=== PATIENT | female | born 1945 | race Caucasian/White ===

== ENCOUNTER 2020-02-23 13:35 | Outpatient (REF) | payer MEDICARE, SELFPAY | END 2020-02-23 13:36 | disposition home or self-care (01) | LOC: HO.LAB 13:35 | PROVIDERS: PCP Internal Medicine; Visit Provider Internal Medicine | DX: Z20.828 Contact with and (suspected) exposure to other viral communicable diseases (principal) | CPT/HCPCS: C9803; U0003 ==

== ENCOUNTER 2023-11-21 08:29 | Outpatient (AMB) | payer MEDICARE, SELFPAY ==
--- NOTE | 2023-11-21 08:38 | MHC.OFFWIV ---
Intake Vital Signs 11/21/23 08:41 Height 5 ft 5 in Weight 157 lb BMI 26.1 BP 122/76 Blood Pressure Location Lt brachial Position Sitting Pulse 81 Pulse Source Pulse Oximeter Temp 98.2 F Temp Source Oral Pulse Oximetry (%) 99 Oxygen Delivery Method Room Air Intake Visit Reasons: EP- cough, RT ear ache, congested Intake Note: pt c/o cough, RT ear pain, congestion. Started Friday Patient Tobacco Use Status: Former Tobacco user Allergies No Known Allergies Allergy (Verified 11/21/23 08:45) Do you need a note to return to daycare/school/sports/work: No HPI HPI Comments History of Present Illness Details Patient is a 77-year-old female complaining of 6 days of a dry cough, a sore throat, right ear pain and right sinus pain. She denies any fevers, shortness of breath or sick contacts. She states she tested at home for COVID twice 2 days ago and both times it was negative. She has been taking Tylenol, using Mucinex and she does have Flonase and an inhaler but have not used either yet [facility] Social History (System 01/29/23 @ 11:10 by Loli Garcia) Patient Tobacco Use Status: Former Tobacco user Physical Exam Vital Signs: Last Vital Signs Temp 98.2 F 11/21/23 08:41 Pulse 81 11/21/23 08:41 BP 122/76 11/21/23 08:41 Pulse Ox 99 11/21/23 08:41 Oxygen Delivery Method Room Air 11/21/23 08:41 BMI result Body Mass Index 26.1 Const General: cooperative, healthy appearing, comfortable and no acute distress Orientation/consciousness: patient oriented x3 Limitations: no limitations HEENT Head: Yes normal to inspection Ears: hearing grossly normal bilaterally, external ears normal, TM normal on the left and TM abnormal (right side) wth effusion (Right side has a slight effusion), erythematous and with loss of landmarks General nose exam: Normal external nose present, Normal nares present and No nasal discharge present Face and sinus: Yes normal facial exam and Yes sinus tenderness (Right side maxillary) Mouth: Normal oral and palatal mucosa present and moist mucous membranes Throat: Yes tonsils normal, Yes uvula midline and Yes posterior oropharynx abnormal (Erythema) Eyes General: appearance normal, both eyes and all related structures Neck Neck: Yes normal visual inspection Resp Effort & Inspection: normal respiratory effort, able to speak in complete sentences, Actively coughing, no respiratory distress, not tachypneic, no tripod positioning and no use of accessory muscles Auscultation: clear to auscultation bilaterally Cardio Rate: regular rate Rhythm: regular rhythm Heart sounds: normal S1 and S2 Skin General skin exam: no rashes or lesions noted Neuro General: patient oriented x3 Extrem General: Yes normal to inspection and Yes no clubbing, cyanosis or edema Assessment & Plan Assessment & Plan (1) Sinusitis, acute maxillary: Code(s): J01.00 - Acute maxillary sinusitis, unspecified Qualifiers: Recurrence: non-recurrent Qualified Code(s): J01.00 - Acute maxillary sinusitis, unspecified Plan: Sent Augmentin to cover both sinusitis and the ear infection as it has been 6 days and she is getting worse. Also sent COVID, flu and RSV testing. (2) Right acute otitis media: Code(s): H66.91 - Otitis media, unspecified, right ear Plan: See above Plan See above Orders: Orders SARS-CoV2/FLU/RSV Today J06.9 - Acute upper respiratory infection, unspecified Medications: New amoxicillin-pot clavulanate 875-125 mg 1 tab PO Q12H 10 tabs 0RF Coding Level of Care Code New Pt Level 3 (17431) Diagnoses Acute non-recurrent maxillary sinusitis J01.00 Recurrence: non-recurrent Right acute otitis media H66.91
[2023-11-21 08:41] VITALS: BP 122/76; PULSE 81; TEMP 36.8; O2SAT 99; BMI 26.1
== END 2023-11-21 09:03 | disposition home or self-care (01) ==
PROVIDERS: PCP Internal Medicine; Visit Provider Physician Assistant
DX: J01.00 Acute maxillary sinusitis, unspecified (principal); H66.91 Otitis media, unspecified, right ear
CPT/HCPCS: 99203

== ENCOUNTER 2023-11-21 09:01 | Outpatient (REF) | payer MEDICARE, SELFPAY ==
[2023-11-21 10:49] LABS: Influenza A PCR NEGATIVE (Negative); Influenza B PCR NEGATIVE (Negative); Resp Syncy Virus RNA Qual PCR NEGATIVE (Negative); SARS COV2 PCR INHOUSE NEGATIVE (Negative)
== END 2023-11-21 09:02 | disposition home or self-care (01) ==
LOC: HO.LAB 09:01
PROVIDERS: Visit Provider Physician Assistant
DX: J06.9 Acute upper respiratory infection, unspecified (principal)
CPT/HCPCS: 0241U

== ENCOUNTER 2023-12-18 08:01 | Outpatient (REF) | payer MEDICARE, SELFPAY ==
[2023-12-18 11:23] LABS: Influenza A PCR NEGATIVE (Negative); Influenza B PCR NEGATIVE (Negative); Resp Syncy Virus RNA Qual PCR NEGATIVE (Negative); SARS COV2 PCR INHOUSE NEGATIVE (Negative)
== END 2023-12-18 08:02 | disposition home or self-care (01) ==
LOC: HO.LAB 08:01
PROVIDERS: Registered Nurse; PCP Internal Medicine; Visit Provider Physician Assistant
DX: J06.9 Acute upper respiratory infection, unspecified (principal); J01.00 Acute maxillary sinusitis, unspecified
CPT/HCPCS: 0241U; 87880; 99202

== ENCOUNTER 2023-12-18 08:01 | Outpatient (AMB) | payer MEDICARE, SELFPAY ==
[2023-12-18 08:07] VITALS: BP 132/84; PULSE 90; TEMP 36.7; O2SAT 99; BMI 26.1
--- NOTE | 2023-12-18 08:07 | AM.OFFWIN_ITS ---
Intake Vital Signs 12/18/23 08:07 Height 5 ft 5 in Weight 157 lb BMI 26.1 BP 132/84 Blood Pressure Location Rt brachial Position Sitting Pulse 90 Pulse Source Pulse Oximeter Temp 98.0 F Temp Source Oral Pulse Oximetry (%) 99 Oxygen Delivery Method Room Air Intake Visit Reasons: EP Sore throat, cough, sinus Intake Note: pt c/o sore throat, cough, body aches, sinus congestion x 1 week Patient Tobacco Use Status: Former Tobacco user Allergies No Known Allergies Allergy (Verified 12/18/23 08:14) Do you need a note to return to daycare/school/sports/work: No HPI HPI Comments History of Present Illness Details Patient is a 78-year-old female complaining of 7 days of a sore throat, a dry cough, body aches, headaches, left ear pain and sinus congestion. She states she has been taking Flonase, Tylenol and using hot tea with lemon and honey without much relief. She denies any shortness of breath, fevers, nausea vomiting or diarrhea. She denies any sick contacts at home. [facility] Social History (System 01/29/23 @ 11:10 by Loli Garcia) Patient Tobacco Use Status: Former Tobacco user Review of Systems Const All systems reviewed & are unremarkable except as noted in HPI and below Physical Exam Vital Signs: Last Vital Signs Temp 98.0 F 12/18/23 08:07 Pulse 90 12/18/23 08:07 BP 132/84 12/18/23 08:07 Pulse Ox 99 12/18/23 08:07 Oxygen Delivery Method Room Air 12/18/23 08:07 BMI result Body Mass Index 26.1 Const General: cooperative, healthy appearing, comfortable and no acute distress Orientation/consciousness: patient oriented x3 Limitations: no limitations HEENT Head: Yes normal to inspection Ears: hearing grossly normal bilaterally, external ears normal and TM's normal bilaterally General nose exam: Normal external nose present, Normal nares present and No nasal discharge present Face and sinus: Yes normal facial exam and Yes sinuses nontender Mouth: Normal oral and palatal mucosa present and moist mucous membranes Throat: Yes tonsils normal, Yes uvula midline and Yes posterior oropharynx abnormal (Erythema) Eyes General: appearance normal, both eyes and all related structures Neck Neck: Yes normal visual inspection Resp Effort & Inspection: normal respiratory effort, able to speak in complete sentences, no respiratory distress, not tachypneic, no tripod positioning and no use of accessory muscles Skin General skin exam: no rashes or lesions noted Neuro General: patient oriented x3 Extrem General: Yes normal to inspection and Yes no clubbing, cyanosis or edema Results AMB Rapid Strep AMB Rapid Strep Negative Last Edit by Roberto Tavares CMA on 12/18/23 08:27 Results Reviewed Results Reviewed: Laboratory Last Values Strep Scn [facility] Negative 12/18/23 08:26 Assessment & Plan Assessment & Plan (1) Sinusitis, acute maxillary: Code(s): J01.00 - Acute maxillary sinusitis, unspecified Qualifiers: Recurrence: non-recurrent Qualified Code(s): J01.00 - Acute maxillary sinusitis, unspecified Plan: Rapid strep in office is negative, sent flu COVID and RSV. vital signs are stable, pt well appearing however as patient is not getting better after 7 days, we will send an antibiotic, recommended she continue to use Flonase, start using a Neti pot, Tylenol ibuprofen as needed. Orders: Orders SARS-CoV2/FLU/RSV Today Nena Cortez NP J06.9 - Acute upper respiratory infection, unspecified AMB Rapid Strep Screen Today Nena Cortez NP Z13.9 - Encounter for screening, unspecified Medications: New doxycycline hyclate 100 mg PO BID 10 tabs 0RF Jennifer Lieberman PA-C Coding Level of Care Code New Pt Level 3 (39696) Diagnoses Acute non-recurrent maxillary sinusitis J01.00 Recurrence: non-recurrent
== END 2023-12-18 08:58 | disposition home or self-care (01) ==
PROVIDERS: PCP Internal Medicine; Visit Provider Physician Assistant
DX: Z13.9 Encounter for screening, unspecified (principal); J01.00 Acute maxillary sinusitis, unspecified